=== PATIENT | female | born 1980 | race African-American/Black ===

== ENCOUNTER 2018-03-13 23:50 | Emergency (ER) | payer OTHER ==
[2018-03-14 00:35] VITALS: BP 122/87; PULSE 90; TEMP 98.4; BMI 88.0
--- NOTE | 2018-03-14 00:50 | PDOC ---
History of Present Illness - General Chief Complaint: Pain, Acute Stated Complaint: STOMACH PAIN Time Seen by Provider: 03/14/18 00:41 History Source: Patient - History of Present Illness Initial Comments: 03/14/18 02:56 37 year old female with epigastric pain radiating to left and right upper quadrant with burning sensation. patient reports that she vomited 1x since tuesday. pain intermittent in nature. denies chest pain SOB, fever chills, urinary symptoms Past History - Past Medical History Allergies/Adverse Reactions: Allergies Allergy/AdvReac Type Severity Reaction Status Date / Time No Known Allergies Allergy Verified 03/14/18 11:21 Home Medications: Ambulatory Orders Acetaminophen [Tylenol] 650 mg PO Q6H PRN 03/14/18 Famotidine [Pepcid -] 40 mg PO DAILY #7 tablet 03/14/18 Amlodipine Besylate [Norvasc -] 10 mg PO DAILY 03/21/18 Losartan/Hydrochlorothiazide [Losartan-Hctz 50-12.5 mg Tab] 1 tab PO DAILY 03/21 Mag Hydrox/Al Hydrox/Simeth [MAALOX *SUSPENSION* -] 30 ml PO Q6H 03/21/18 - Suicide/Smoking/Psychosocial Hx Smoking History: Never smoked Have you smoked in the past 12 months: No Information on smoking cessation initiated: No Hx Alcohol Use: No Drug/Substance Use Hx: No Review of Systems - Review of Systems Able to Perform ROS?: Yes Is the patient limited Bel[place]ian proficient: No Constitutional: No: Symptoms Reported, See HPI, Chills, Diaphoresis, Fever, Loss of Appetite, Malaise, Night Sweats, Weakness, Weight Stable, Unintentional Wgt. Loss, Unexplained wgt Loss, Other Respiratory: No: Symptoms reported, See HPI, Cough, Orthopnea, Shortness of Breath, SOB with Exertion, SOB at Rest, Stridor, Wheezing, Productive cough, Hemoptysis, Other Cardiac (ROS): No: Symptoms Reported, See HPI, Chest Pain, Edema, Irregular Heart Rate, Lightheadedness, Palpitations, Syncope, Chest Tightness, Other ABD/GI: Yes: Nausea, Abdominal cramping. No: Symptoms Reported, See HPI, Abdominal Distended, Abd. Pain w/ defecation, Blood Streaked Bowels, Constipated , Diarrhea, Difficulty Swallowing, Poor Appetite, Poor Fluid Intake, Rectal Bleeding, Vomiting, Indigestion, Tarry Stools, Other *Physical Exam - Vital Signs Last Vital Signs Temp Pulse Resp BP Pulse Ox 98.4 F 90 20 122/87 99 03/14/18 00:31 03/14/18 00:31 03/14/18 00:31 03/14/18 00:31 03/14/18 00:31 - Physical Exam General Appearance: Yes: Appropriately Dressed Respiratory/Chest: positive: Lungs Clear, Normal Breath Sounds Gastrointestinal/Abdominal: positive: Normal Bowel Sounds, Tender (epigatsric tenderness), Soft Musculoskeletal: positive: Normal Inspection Extremity: positive: Normal Capillary Refill, Normal Inspection, Normal Range of Motion Integumentary: positive: Normal Color, Dry, Warm Neurologic: positive: Fully Oriented, Alert, Normal Mood/Affect Medical Decision Making - Medical Decision Making Gastritis P: pepcid; maalox 03/14/18 03:09 patient reports feeling better. will d/c home with maalox and pepcid. strict return precautions reviewed with patient. patient verbalized understanding. 03/31/18 05:57 *DC/Admit/Observation/Transfer Diagnosis at time of Disposition: Gastritis Qualifiers: Gastritis type: unspecified gastritis Chronicity: unspecified Gastritis bleeding: without bleeding Qualified Code(s): K29.70 - Gastritis, unspecified, without bleeding - Discharge Dispostion Disposition: HOME - Prescriptions Prescriptions: Famotidine [Pepcid -] 40 mg PO DAILY #7 tablet - Referrals Referrals: Isaac Vargas [Primary Care Provider] - Jones Osorio DO [Staff Physician] - Call tomorrow - Patient Instructions Printed Discharge Instructions: Gastritis, [place] Diet Additional Instructions: start a bland diet take pepcid and maalox as prescribed. follow up with a Gasteroenterology as soon as possible. return to the ER if symptoms worsen - Post Discharge Activity Forms/Work/School Notes: Back to Work
[2018-03-14 01:20] LABS: URINE APPEARANCE SLCLOUDY; URINE BILIRUBIN NEGATIVE (<2.0 mg/dL); URINE COLOR YELLOW; URINE GLUCOSE (UA) NEGATIVE (NEGATIVE); URINE KETONE NEGATIVE (NEGATIVE); URINE LEUK ESTERASE NEGATIVE (NEGATIVE); URINE NITRITE NEGATIVE (NEGATIVE); URINE PROTEIN NEGATIVE (NEGATIVE)
[2018-03-14 01:21] LABS: HCG,QUALITATIVE URINE NEGATIVE
[2018-03-14] MEDS ORDERED: MAG HYDROX/AL HYDROX/SIMETH 30 ML UNIT-DOSE CUP PO ONE (02:30)
[2018-03-14] MEDS ORDERED: DICYCLOMINE HCL 10 MG CAPSULE PO ONE (02:30)
[2018-03-14] MEDS ORDERED: ONDANSETRON *ODT* 4 MG TABLET SL ONE (02:32)
[2018-03-14] MEDS ORDERED: SUCRALFATE 1 GM TABLET (FP) ONE (02:39)
[2018-03-14] MEDS ORDERED: ONDANSETRON *ODT* 4 MG TABLET ONE (02:39)
[2018-03-14] MEDS ORDERED: DICYCLOMINE HCL 10 MG CAPSULE ONE (02:39)
[2018-03-14] MEDS ORDERED: MAG HYDROX/AL HYDROX/SIMETH 30 ML UNIT-DOSE CUP ONE (02:39)
[2018-03-14] MEDS ORDERED: SUCRALFATE 1 GM TABLET (FP) PO ONE (02:45)
== END 2018-03-14 03:21 | disposition home or self-care (01) ==
LOC: JER 23:50
DX: K29.70 Gastritis, unspecified, without bleeding (principal)
CPT/HCPCS: 76705-TC; 81003; 84703; 99282-25; Q0162

== ENCOUNTER 2018-03-14 11:09 | Emergency (ER) | payer OTHER ==
[2018-03-14 11:24] VITALS: BP 129/81; PULSE 88; TEMP 98.2; BMI 39.9
[2018-03-14] MEDS ORDERED: ONDANSETRON 4 MG/2 ML VIAL IVPB ONE (11:57)
[2018-03-14] MEDS ORDERED: morphine CARPU-JECT 4 MG/1 ML DISP.SYRIN IVPUSH ONE (11:57)
[2018-03-14] MEDS ORDERED: SODIUM CHLORIDE 1,000 ML IV STA (11:57)
--- NOTE | 2018-03-14 12:07 | PDOC ---
History of Present Illness - General History Source: Patient Exam Limitations: No Limitations <Boogie Villagomez - Last Filed: 03/14/18 15:29> - General History Source: Patient Exam Limitations: No Limitations - History of Present Illness Initial Comments: 03/14/18 12:12 The patient is a 37 year old female with significant PMH of obesity and hypertension who presents to the emergency department for reevaluation of persistent upper abdominal pain with associated nausea that began approximately 4 days ago. The patient describes the upper abdominal pain as intermittent, sharp and burning in sensation. The patient endorses nausea/ vomit after eating/ drinking. The patient has been taking Tylenol with minimal relief. The patient reports she had a similar pain in the past and was told she had fibroids and a cyst. The patient was told to follow up with a GI doctor. The patient cannot recall when she last had an endoscopy. The patient was seen earlier today at our facility and had a urine analysis and ultrasound done, both of which were negative. The patient was told she likely had gastritis and was discharged home. The patient states the upper abdominal pain is persistent despite Tylenol and Protonix prompting her to come to the ER for a second evaluation. The patient denies chest pain, shortness of breath, headache and dizziness. Denies fever, chills, diarrhea and constipation. Denies dysuria, frequency, urgency and hematuria. Allergies: NKA Past surgical history: None reported. Social history: No reported alcohol, drug, or cigarette use. PCP: Dr. Vargas <Almita Vargas - Last Filed: 03/14/18 18:17> - General Chief Complaint: Pain Stated Complaint: REVISIT, PAIN Time Seen by Provider: 03/14/18 11:49 Past History - Past Medical History COPD: No DVT: No HTN: Yes - Surgical History Abdominal Surgery: Yes (ECTOPIC, TUBAL LIGATION) - Suicide/Smoking/Psychosocial Hx Smoking History: Never smoked Have you smoked in the past 12 months: No Information on smoking cessation initiated: Yes Hx Alcohol Use: No Drug/Substance Use Hx: No Substance Use Type: None <Boogie Villagomez - Last Filed: 03/14/18 15:29> <Almita Vargas - Last Filed: 03/14/18 18:17> - Past Medical History Allergies/Adverse Reactions: Allergies Allergy/AdvReac Type Severity Reaction Status Date / Time No Known Allergies Allergy Verified 03/14/18 11:21 Home Medications: Ambulatory Orders Acetaminophen [Tylenol] 650 mg PO Q6H PRN 03/14/18 Famotidine [Pepcid -] 40 mg PO DAILY #7 tablet 03/14/18 Mag Hydrox/Al Hydrox/Simeth [Mylanta Suspension -] 30 ml PO Q6H PRN #1 bottle Review of Systems - Review of Systems Able to Perform ROS?: Yes Comments:: 03/14/18 12:19 GENERAL/CONSTITUTIONAL: No fever or chills. No weakness. HEAD, EYES, EARS, NOSE AND THROAT: No change in vision. No ear pain or discharge. No sore throat. CARDIOVASCULAR: No chest pain or shortness of breath. RESPIRATORY: No cough, wheezing, or hemoptysis. GASTROINTESTINAL: (+) Upper abdominal pain. (+) Nausea. (+) Vomiting. No diarrhea or constipation. GENITOURINARY: No dysuria, frequency, or change in urination. MUSCULOSKELETAL: No joint or muscle swelling or pain. No neck or back pain. SKIN: No rash NEUROLOGIC: No headache, vertigo, loss of consciousness, or change in strength/ sensation. ENDOCRINE: No increased thirst. No abnormal weight change. HEMATOLOGIC/LYMPHATIC: No anemia, easy bleeding, or history of blood clots. ALLERGIC/IMMUNOLOGIC: No hives or skin allergy. <Almita Vargas - Last Filed: 03/14/18 18:17> *Physical Exam - Vital Signs Last Vital Signs Temp Pulse Resp BP Pulse Ox 98.2 F 88 18 129/81 100 03/14/18 11:22 03/14/18 11:22 03/14/18 11:22 03/14/18 11:22 03/14/18 11:22 <Boogie Villagomez - Last Filed: 03/14/18 15:29> - Vital Signs Last Vital Signs Temp Pulse Resp BP Pulse Ox 98.2 F 88 18 129/81 100 03/14/18 11:22 03/14/18 11:22 03/14/18 11:22 03/14/18 11:22 03/14/18 11:22 - Physical Exam Comments: 03/14/18 12:20 GENERAL: (+) Obese. Awake, alert, and fully oriented, in no acute distress HEAD: No signs of trauma EYES: PERRLA, EOMI, sclera anicteric, conjunctiva clear ENT: Auricles normal inspection, hearing grossly normal, nares patent, oropharynx clear without exudates. Moist mucosa NECK: Normal ROM, supple, no lymphadenopathy, JVD, or masses LUNGS: Breath sounds equal, clear to auscultation bilaterally. No wheezes, and no crackles HEART: Regular rate and rhythm, normal S1 and S2, no murmurs, rubs or gallops ABDOMEN: (+) Right upper quadrant is tender to palpation. Soft, normoactive bowel sounds. No guarding, no rebound. No masses EXTREMITIES: Normal range of motion, no edema. No clubbing or cyanosis. No cords, erythema, or tenderness NEUROLOGICAL: Cranial nerves II through XII grossly intact. Normal speech. SKIN: Warm, Dry, normal turgor, no rashes or lesions noted. <Almita Vargas - Last Filed: 03/14/18 18:17> ED Treatment Course - LABORATORY CBC & Chemistry Diagram: 03/14/18 12:21 03/14/18 11:56 - RADIOLOGY Radiology Studies Ordered: Category Date Time Status ABDOMEN & PELVIS CT WITH CONTR [CT] Stat CT Scan 03/14/18 11:56 Ordered <Boogie Villagomez - Last Filed: 03/14/18 15:29> - LABORATORY CBC & Chemistry Diagram: 03/14/18 12:21 03/14/18 11:56 <Almita Vargas - Last Filed: 03/14/18 18:17> Medical Decision Making - Medical Decision Making 03/14/18 12:03 A portion of this note was documented by scribe services under my direction. I have reviewed the details of the note, within reason, and agree with the documentation with the following case summary and management plan written by me. Patient treated in the ED. Nursing notes are reviewed and incorporated into the medical decision-making. Vital signs reviewed. Peripheral IV access obtained by the nurse, laboratory studies are drawn and sent, reviewed and interpreted by myself. Vital Signs Temp Pulse Resp BP Pulse Ox 98.2 F 88 18 129/81 100 03/14/18 11:22 03/14/18 11:22 03/14/18 11:22 03/14/18 11:22 05/08/18 11:22 37-year-old female patient with past medical history obesity, hypertension presents with persistent pain. The patient reports for approximate 4 days of having his upper abdominal pain with nausea. She states she's been having poor appetite and every time she eats or drinks she vomits. Denies fevers or chills, dysuria, hematuria. She was seen in the ER this morning where she had an ultrasound and a urinalysis performed. Given negative urine test and ultrasound and discharged with instructions that this may be likely gastritis. However, patient can have persistent pain despite taking Tylenol and Protonix. Came in for evaluation. Differential includes hepatitis, pancreatitis, peptic ulcer, gastritis. We'll obtain labs including a CAT scan the abdomen pelvis and reassess. 03/14/18 15:29 CBC, BMP 03/14/18 12:21 03/14/18 11:56 CMP Sodium 142 mmol/L (136-145) 03/14/18 11:56 Potassium 3.6 mmol/L (3.5-5.1) 03/14/18 11:56 Chloride 105 mmol/L (98-107) 03/14/18 11:56 Carbon Dioxide 32 mmol/L (21-32) 03/14/18 11:56 Anion Gap 5 (8-16) L 03/14/18 11:56 BUN 11 mg/dL (7-18) 03/14/18 11:56 Creatinine 0.8 mg/dL (0.55-1.02) 03/14/18 11:56 Creat Clearance w eGFR > 60 (>60) 03/14/18 11:56 Random Glucose 108 mg/dL (74-106) H 03/14/18 11:56 Calcium 8.6 mg/dL (8.5-10.1) 03/14/18 11:56 Total Bilirubin 0.4 mg/dL (0.2-1.0) D 03/14/18 11:56 AST 9 U/L (15-37) L 03/14/18 11:56 ALT 14 U/L (12-78) 03/14/18 11:56 Alkaline Phosphatase 97 U/L (45-117) 03/14/18 11:56 Total Protein 7.8 g/dl (6.4-8.2) 03/14/18 11:56 Albumin 3.7 g/dl (3.4-5.0) 03/14/18 11:56 Lipase 162 U/L (73-393) 03/14/18 11:56 CAT scan the abdomen pelvis demonstrate no acute findings. I suspect that the patient has gastritis or gastric ulcer. The patient already made an appointment with Dr. Don Cain in 2 days. She is aware that she'll likely need an endoscopy. Pt has zantac and protonix to take at home. I discussed the physical exam findings, ancillary test results and final diagnoses with the patient. I answered all of the patient's questions. The patient was satisfied with the care received and felt comfortable with the discharge plan and treatment plan. The patient will call their primary care physician within 24 hours to arrange follow-up and will return to the Emergency Department with any new, persistant or worsening symptoms. <Boogie Villagomez - Last Filed: 03/14/18 15:29> - Medical Decision Making 03/14/18 15:05 Imaging: Abdomen and Pelvis CT with contrast. Impression: Fibroid uterus otherwise essentially normal CT scan of the abdomen and pelvis with no evidence of acute pathology. Reported by: Dr. Clemens <Almita Vargas - Last Filed: 03/14/18 18:17> *DC/Admit/Observation/Transfer - Discharge Dispostion Decision to Admit order: No <Boogie Villagomez - Last Filed: 03/14/18 15:29> - Attestations Scribe Attestion: 03/14/18 12:21 Documentation prepared by Almita Vargas, acting as medical receptionist biller for Boogie Villagomez MD. <Almita Vargas - Last Filed: 03/14/18 18:17> Diagnosis at time of Disposition: Gastritis Qualifiers: Gastritis type: unspecified gastritis Chronicity: unspecified Gastritis bleeding: without bleeding Qualified Code(s): K29.70 - Gastritis, unspecified, without bleeding - Discharge Dispostion Disposition: HOME Condition at time of disposition: Improved - Referrals Referrals: Isaac Vargas [Primary Care Provider] - Jones Osorio DO [Staff Physician] - - Patient Instructions Printed Discharge Instructions: DI for Gastritis Additional Instructions: You will likely need an endoscopy. Continue taking your anti-acid reflux medications. Please follow up with Dr. Cain on . - Post Discharge Activity
[2018-03-14] MEDS ORDERED: ONDANSETRON 4 MG/2 ML VIAL ONE (12:09)
[2018-03-14] MEDS ORDERED: morphine SULFATE 4 MG/ML VIAL ONE (12:09)
[2018-03-14 12:38] LABS: BASO % 1.1 % (0-2.0); EOS % 2.7 % (0-4.5); HEMATOCRIT 35.5 % (32.4-45.2); LYMPH % 43.5 % (8-40); MCH 20.9 pg (25.7-33.7); MEAN CELL VOLUME 67.5 fl (80-96); MEAN PLT VOLUME 8.9 fl (7.5-11.1); MONO % 7.4 % (3.8-10.2); NEUT % 45.3 % (42.8-82.8); PLATELET COUNT 245 K/MM3 (134-434); RBC 5.25 M/mm3 (3.60-5.2); RDW 15.2 % (11.6-15.6); WHITE BLOOD COUNT 5.1 K/mm3 (4.0-10.0)
[2018-03-14 13:23] LABS: ALBUMIN 3.7 g/dl (3.4-5.0); ANION GAP 5 (8-16); CALCIUM 8.6 mg/dL (8.5-10.1); CHLORIDE 105 mmol/L (98-107); CO2 32 mmol/L (21-32); CREATININE 0.8 mg/dL (0.55-1.02); GLUCOSE,RANDOM 108 mg/dL (74-106); LIPASE 162 U/L (73-393); POTASSIUM 3.6 mmol/L (3.5-5.1); SGOT/AST 9 U/L (15-37); SGPT/ALT 14 U/L (12-78); SODIUM 142 mmol/L (136-145)
[2018-03-14 13:30] LABS: ALK PHOS 97 U/L (45-117); BILIRUBIN,TOTAL 0.4 mg/dL (0.2-1.0); BLOOD UREA NITROGEN 11 mg/dL (7-18); TOT PROT 7.8 g/dl (6.4-8.2)
== END 2018-03-14 15:38 | disposition home or self-care (01) ==
LOC: JER 11:09
PROC: 3E033NZ Introduction of Analgesics, Hypnotics, Sedatives into Peripheral Vein, Percutaneous Approach (ICD-10-PCS; principal; 2018-03-14)
PROC: 3E033GC Introduction of Other Therapeutic Substance into Peripheral Vein, Percutaneous Approach (ICD-10-PCS; 2018-03-14)
DX: K29.70 Gastritis, unspecified, without bleeding (principal); I10 Essential (primary) hypertension; E66.9 Obesity, unspecified; Z68.39 Body mass index [BMI] 39.0-39.9, adult
CPT/HCPCS: 36415; 74177-TC; 80053; 83690; 85025; 96374; 96375; 99282-25; J7030

== ENCOUNTER 2018-03-21 10:25 | Day surgery (SDC) | payer OTHER ==
[2018-03-21 11:29] VITALS: BMI 40.1
[2018-03-21] MEDS ORDERED: PROPOFOL 20 ML ONE ×3 (12:08)
[2018-03-21 12:49] VITALS: TEMP 97.7
[2018-03-21 13:31] VITALS: BP 138/88; PULSE 64
--- NOTE | 2018-03-22 11:36 | PATH ---
Surgical Pathology Report Patient Name: ELEANOR STOREY [facility]. Rec. #: [id number] /Age/Gender: 1980 (Age: 37) / F Account: [id number] Location: U-ENDOSCOPY Taken: 03/21/2018 Received: 03/21/2018 Reported: 03/22/2018 Physicians: Travon Osorio D.O. Specimen(s) Received BX BODY/ANGULARIS Clinical History Abdominal pain Postoperative diagnosis: Hiatal hernia, dyspepsia Final Diagnosis GASTRIC ANGULARIS/BODY, BIOPSY: GASTRIC MUCOSA WITH CHRONIC GASTRITIS. IMMUNOSTAIN IS NEGATIVE FOR H. PYLORI ORGANISMS. Electronically Signed Sameer Mckinley M.D. Gross Description Received in formalin, labeled "biopsy angularis/body" are 4 owens, irregular portions of soft tissue ranging from 0.2-0.4 cm. in greatest dimension. The specimens are submitted in toto in one cassette. /03/21/2018 saudi/03/21/2018
== END 2018-03-21 13:20 | disposition home or self-care (01) ==
LOC: JASU-ENDO 10:25
PROVIDERS: ATTEND Internal Medicine Gastroenterology
PROC: 0DB68ZX Excision of Stomach, Via Natural or Artificial Opening Endoscopic, Diagnostic (ICD-10-PCS; principal; 2018-03-21 11:30)
DX: K44.9 Diaphragmatic hernia without obstruction or gangrene (principal); K29.50 Unspecified chronic gastritis without bleeding
CPT/HCPCS: 84703; 88305-TC; 88342-TC

== ENCOUNTER 2019-04-08 08:06 | Emergency (ER) | payer OTHER ==
[2019-04-08 08:19] VITALS: BP 124/88; PULSE 79; TEMP 98.5; BMI 32.8
--- NOTE | 2019-04-08 08:38 | PDOC ---
History of Present Illness - General Chief Complaint: Pain Stated Complaint: R WRIST PAIN Time Seen by Provider: 04/08/19 08:15 - History of Present Illness Initial Comments: 04/08/19 08:54 CHIEF COMPLAINT: wrist pain HISTORY OF PRESENT ILLNESS: 38 yo F with no significant PMH presents to ED with pain to R wrist x 2 years. Patient reports the pain was intermittent for some time and she "was supposed to get an x-ray but I never got it because the pain would come and go." Patient reports the pain started shooting up her arm this weekend, especially with flexion or extension of the wrist. She does admit to being on the computer all the time for work. Denies any trauma or injury. No recent travel or sick contacts. PAST MEDICAL HISTORY: Denies past medical history FAMILY HISTORY: Denies SOCIAL HISTORY: Denies tobacco, alcohol, illicit drug use. SURGICAL HISTORY: Denies ALLERGIES: No known drug allergies REVIEW OF SYSTEMS General/Constitutional: Denies fever or chills. Denies weakness, weight change. HEENT: Denies change in vision. Denies ear pain or discharge. Denies sore throat. Cardiovascular: Denies chest pain or shortness of breath. Respiratory: Denies cough, wheezing, or hemoptysis. Gastrointestinal: Denies nausea, vomiting, diarrhea or constipation. Denies rectal bleeding. Genitourinary: Denies dysuria, frequency, or change in urination. Musculoskeletal: Right wrist pain. Skin: Denies rash or easy bruising. Neurologic: Denies headache, vertigo, loss of consciousness, or loss of sensation. PHYSICAL EXAM General Appearance: Well-appearing, appropriately dressed. No apparent distress , no intoxication. HEENT: EOMI, PERRLA, normal ENT inspection, normal voice, TMs normal, pharynx normal. No conjunctival pallor. No photophobia, scleral icterus. Neck: Supple. Trachea midline. No tenderness, rigidity, carotid bruit, stridor , lymphadenopathy, or thyromegaly. Respiratory/Chest: Lungs CTAB. No shortness of breath, chest tenderness, respiratory distress, accessory muscle use. No crackles, rales, rhonchi, stridor , wheezing, dullness Cardiovascular: RRR. S1, S2. No JVD, murmur, bradycardia, tachycardia. Vascular Pulses: Dorsalis-Pedis (R): 2+, Dorsalis-Pedis (L): 2+ Gastrointestinal/Abdominal: Normal bowel sounds. Abdomen soft, non-distended. No tenderness or rebound tenderness. No organomegaly, pulsatile mass, guarding , hernia, hepatomegaly, splenomegaly. Lymphatic: No adenopathy, tenderness. Musculoskeletal/Extremities: Positive phalen's sign to R wrist. Normal inspection. FROM of all other extremities, normal capillary refill. Pelvis Stable. No CVA tenderness. No tenderness to extremities, pedal edema, swelling , erythema or deformity. Integumentary: Appropriate color, dry, warm. No cyanosis, erythema, jaundice or rash Neurologic: balloon tester II-XII intact. Fully oriented, alert. Appropriate mood/affect. Motor strength 5/5. No appreciable EOM palsy, facial droop or sensory deficit. Past History - Past Medical History Allergies/Adverse Reactions: Allergies Allergy/AdvReac Type Severity Reaction Status Date / Time No Known Allergies Allergy Verified 04/08/19 08:11 Home Medications: Ambulatory Orders Acetaminophen [Tylenol] 650 mg PO Q6H PRN 03/14/18 Famotidine [Pepcid -] 40 mg PO DAILY #7 tablet 03/14/18 Amlodipine Besylate [Norvasc -] 10 mg PO DAILY 03/21/18 Losartan/Hydrochlorothiazide [Losartan-Hctz 50-12.5 mg Tab] 1 tab PO DAILY 03/21 Mag Hydrox/Al Hydrox/Simeth [MAALOX *SUSPENSION* -] 30 ml PO Q6H 03/21/18 Diclofenac Sodium 75 mg PO BID #20 tablet. 04/08/19 Asthma: Yes COPD: No DVT: No HTN: Yes - Surgical History Abdominal Surgery: Yes (ECTOPIC, TUBAL LIGATION) - Suicide/Smoking/Psychosocial Hx Smoking History: Current every day smoker Have you smoked in the past 12 months: No Number of Cigarettes Smoked Daily: 10 Information on smoking cessation initiated: No Hx Alcohol Use: No Drug/Substance Use Hx: No Substance Use Type: None *Physical Exam - Vital Signs Last Vital Signs Temp Pulse Resp BP Pulse Ox 98.5 F 79 18 124/88 100 04/08/19 08:08 04/08/19 08:08 04/08/19 08:08 04/08/19 08:08 04/08/19 08:08 Medical Decision Making - Medical Decision Making 04/08/19 10:46 38 yo F with no significant PMH presents to ED with pain to R wrist x 2 years. clinical presentation consistent with carpal tunnel syndrome splint applied, NSAIDS, wrist ortho referral given. Advised patient to take medication as prescribed and follow up with ortho within the next 2 weeks. Advised patient of signs and symptoms for return to ED. Patient verbalized understanding and agrees to plan. *DC/Admit/Observation/Transfer Diagnosis at time of Disposition: Carpal tunnel syndrome Qualifiers: Laterality: right Qualified Code(s): G56.01 - Carpal tunnel syndrome, right upper limb - Discharge Dispostion Disposition: HOME Condition at time of disposition: Stable Decision to Admit order: No - Prescriptions Prescriptions: Diclofenac Sodium 75 mg PO BID #20 tablet.dr - Referrals Referrals: Ahsan Tate MD [Primary Care Provider] - Rajeev Hercules MD [Staff Physician] - - Patient Instructions Printed Discharge Instructions: DI for Carpal Tunnel Syndrome Additional Instructions: Please wear wrist splint daily except when bathing or doing other necessary activities of daily living. Follow up with orthopedic wrist specialist as discussed. If you develop new or worsening symptoms, please return to the ER. - Post Discharge Activity Forms/Work/School Notes: Back to Work
[2019-04-08] MEDS ORDERED: KETOROLAC TROMETHAMINE 30 MG/1 ML VIAL IM ONE (08:39)
[2019-04-08] MEDS ORDERED: KETOROLAC TROMETHAMINE 30 MG/1 ML VIAL ONE (08:44)
== END 2019-04-08 09:26 | disposition home or self-care (01) ==
LOC: JERFT 08:06
PROC: 3E0233Z Introduction of Anti-inflammatory into Muscle, Percutaneous Approach (ICD-10-PCS; principal; 2019-04-08)
DX: G56.01 Carpal tunnel syndrome, right upper limb (principal)
CPT/HCPCS: 73110-TC-RT-FY; 96372; 99281-25

== ENCOUNTER 2019-10-14 15:16 | Emergency (ER) | payer OTHER ==
[2019-10-14 15:20] VITALS: BP 129/85; PULSE 84; TEMP 98.3; BMI 32.8
--- NOTE | 2019-10-14 15:51 | PDOC ---
History of Present Illness - General Chief Complaint: Respiratory Stated Complaint: SOB Time Seen by Provider: 10/14/19 15:22 History Source: Patient Exam Limitations: No Limitations - History of Present Illness Initial Comments: 10/14/19 15:40 HISTORY OF PRESENT ILLNESS: 39-year-old woman past medical history of asthma (1- 2 annual visits, no history of intubation) presents to the emergency department for evaluation of sneezing, moist cough, audibly wheezing for the past 4 days. She reports increasing shortness of breath over the 4 days. She denies any fevers, chills, chest pain, back pain. Patient is a pack-a-day smoker for many years but has abstained from cigarettes over the past 4 days due to shortness of breath. No recent travel or sick contacts. PAST MEDICAL HISTORY: Asthma SURGICAL HISTORY: Denies ALLERGIES: No known drug allergies REVIEW OF SYSTEMS General/Constitutional: Denies fever or chills. Denies weakness, weight change. HEENT: Denies change in vision. Denies ear pain or discharge. Denies sore throat. Cardiovascular: Denies chest pain or shortness of breath. Respiratory: See HPI Gastrointestinal: Denies nausea, vomiting, diarrhea or constipation. Denies rectal bleeding. Genitourinary: Denies dysuria, frequency, or change in urination. Musculoskeletal: Denies joint or muscle swelling or pain. Denies neck or back pain. Skin and breasts: Denies rash or easy bruising. Neurologic: Denies headache, vertigo, loss of consciousness, or loss of sensation. Psychiatric: Denies depression or anxiety. Endocrine: Denies increased thirst. Denies abnormal weight change. Hematologic/Lymphatic: Denies anemia, easy bleeding, or history of blood clots. Allergic/Immunologic: Denies hives or skin allergy. Denies latex allergy. PHYSICAL EXAM General Appearance: Well-appearing, appropriately dressed. No apparent distress , no intoxication. HEENT: EOMI, PERRLA, normal ENT inspection, normal voice, TMs normal, pharynx normal. No conjunctival pallor. No photophobia, scleral icterus. Neck: Supple. Trachea midline. No tenderness, rigidity, carotid bruit, stridor , lymphadenopathy, or thyromegaly. Respiratory/Chest: Lungs CTAB. No shortness of breath, chest tenderness, respiratory distress, accessory muscle use. No crackles, rales, rhonchi, stridor , wheezing, dullness. Audible wheezing noted. Cardiovascular: RRR. S1, S2. No JVD, murmur, bradycardia, tachycardia. Integumentary: Appropriate color, dry, warm. No cyanosis, erythema, jaundice or rash Past History - Past Medical History Allergies/Adverse Reactions: Allergies Allergy/AdvReac Type Severity Reaction Status Date / Time No Known Allergies Allergy Verified 10/14/19 15:20 Home Medications: Ambulatory Orders Amlodipine Besylate [Norvasc -] 10 mg PO DAILY 03/21/18 Losartan/Hydrochlorothiazide [Losartan-Hctz 50-12.5 mg Tab] 1 tab PO DAILY 03/21 Albuterol Sulfate [Proair Hfa] 8.5 gm IH PRN PRN #1 [email or web address] 10/14/19 Azithromycin [Zithromax 250mg Tablets -] 250 mg PO UTDICT #6 tab 10/14/19 Anemia: Yes Asthma: Yes COPD: No DVT: No HTN: Yes - Surgical History Abdominal Surgery: Yes (ECTOPIC, TUBAL LIGATION) - Psycho Social/Smoking Cessation Hx Smoking History: Current every day smoker Have you smoked in the past 12 months: No Number of Cigarettes Smoked Daily: 10 Information on smoking cessation initiated: No Hx Alcohol Use: No Drug/Substance Use Hx: No Substance Use Type: None *Physical Exam - Vital Signs Last Vital Signs Temp Pulse Resp BP Pulse Ox 98.3 F 84 18 129/85 99 10/14/19 15:18 10/14/19 15:18 10/14/19 15:18 10/14/19 15:18 10/14/19 15:18 Medical Decision Making - Medical Decision Making 10/14/19 15:51 A/P: 39-year-old woman with shortness of breath progressing over 4 days Lungs clear to auscultation bilaterally Speaking in full sentences Audibly wheezing DuoNeb x4 Reassess 10/14/19 16:48 Patient reports improvement in her perceived respiratory status. Lungs remain clear to auscultation bilaterally. No longer audibly wheezing. Smoking cessation counseling attempted but patient refused. Discharge home with prescription for azithromycin for acute bronchitis given patient's asthma history. I discussed the physical exam findings, ancillary test results and final diagnoses with the patient. I answered all of the patient's questions. The patient was satisfied with the care received and felt comfortable with the discharge plan and treatment plan. The patient will call their primary care physician within 24 hours to arrange follow-up and will return to the Emergency Department with any new, persistent or worsening symptoms. 10/14/19 16:50 10/14/19 16:50 10/14/19 16:53 Discharge - Discharge Information Problems reviewed: Yes Clinical Impression/Diagnosis: Bronchitis, Declined smoking cessation Condition: Stable Disposition: HOME - Admission No - Additional Discharge Information Prescriptions: Albuterol Sulfate [Proair Hfa] 8.5 gm IH PRN PRN #1 [email or web address] PRN Reason: Wheezing Azithromycin [Zithromax 250mg Tablets -] 250 mg PO UTDICT #6 tab - Follow up/Referral - Patient Discharge Instructions Additional Instructions: Rest, drink lots of fluids: Teas, water, soups, Pedialyte Saltwater gargles Steamy showers/seem to face break up mucus Avoid contact with others until fevers and cough resolved Lots of handwashing and good hygiene Continue [id number] medications for symptomatic relief Tylenol or Motrin for fever and pain Azithromycin as directed Followup with private physician in one to 2 days as needed Return to emergency department for worsened symptoms, fevers, dehydration - Post Discharge Activity
[2019-10-14] MEDS ORDERED: ALBUTEROL SO4 2.5/IPRATROPIUM 0.5 INH SOL 3 ML VIAL.NEB. NEB ONE (15:52)
[2019-10-14] MEDS: ALBUTEROL SO4 2.5/IPRATROPIUM 0.5 INH SOL 3 ML VIAL.NEB. NEB SCH ×4 (15:54→16:31)
== END 2019-10-14 16:56 | disposition home or self-care (01) ==
LOC: JERFT 15:16
PROC: 3E0F7GC Introduction of Other Therapeutic Substance into Respiratory Tract, Via Natural or Artificial Opening (ICD-10-PCS; principal; 2019-10-14)
DX: J40 Bronchitis, not specified as acute or chronic (principal); F17.210 Nicotine dependence, cigarettes, uncomplicated; I10 Essential (primary) hypertension; Z86.718 Personal history of other venous thrombosis and embolism
CPT/HCPCS: 99282-25

== ENCOUNTER 2021-08-10 08:22 | Emergency (ER) | payer OTHER ==
[2021-08-10 08:30] VITALS: BP 144/88; PULSE 85; TEMP 97.6; BMI 36.0
[2021-08-10] MEDS ORDERED: KETOROLAC TROMETHAMINE 30 MG/1 ML VIAL IM ONE (10:33)
[2021-08-10] MEDS ORDERED: KETOROLAC TROMETHAMINE 30 MG/1 ML VIAL ONE (10:44)
== END 2021-08-10 12:58 | disposition home or self-care (01) ==
LOC: JERFT 08:22
PROC: 3E0233Z Introduction of Anti-inflammatory into Muscle, Percutaneous Approach (ICD-10-PCS; principal; 2021-08-10)
DX: M25.561 Pain in right knee (principal)
CPT/HCPCS: 73562-TC-RT-FY; 99284-25

== ENCOUNTER 2022-01-27 11:33 | Emergency (ER) | payer OTHER ==
[2022-01-27 11:42] VITALS: BP 148/87; PULSE 78; TEMP 98; BMI 34.4
[2022-01-27] MEDS ORDERED: ACETAMINOPHEN 1000 MG/100 ML BAG IVPB ONE (12:07)
[2022-01-27] MEDS ORDERED: SODIUM CHLORIDE 0.9% 500 ML INFUS.BAG IV ONE (12:07)
[2022-01-27] MEDS ORDERED: KETOROLAC TROMETHAMINE 30 MG/1 ML VIAL IVPUSH ONE (12:07)
[2022-01-27] MEDS ORDERED: ACETAMINOPHEN/CAFFEINE/BUTALBITAL 1 TAB PO ONE (12:07)
[2022-01-27] MEDS ORDERED: METOCLOPRAMIDE HCL INJECTION 10 MG/2 ML VIAL IVPUSH ONE (12:07)
[2022-01-27] MEDS ORDERED: KETOROLAC TROMETHAMINE 30 MG/1 ML VIAL ONE (12:22)
[2022-01-27] MEDS ORDERED: METOCLOPRAMIDE HCL INJECTION 10 MG/2 ML VIAL ONE (12:22)
[2022-01-27] MEDS ORDERED: ACETAMINOPHEN INJECTION 100 ML IVPB ONE (12:22)
[2022-01-27] MEDS ORDERED: ACETAMINOPHEN/CAFFEINE/BUTALBITAL 1 TAB ONE (12:58)
[2022-01-27] MEDS ORDERED: SUMATRIPTAN SUCCINATE 6 MG/0.5 ML VIAL SQ ONE (14:36)
[2022-01-27] MEDS ORDERED: SUMATRIPTAN SUCCINATE 6 MG/0.5 ML VIAL ONE (14:56)
[2022-01-27] MEDS ORDERED: VALPROATE SODIUM 500 MG/5 ML VIAL IVPB ONE (15:18)
[2022-01-27] MEDS ORDERED: VALPROATE SODIUM 500 MG/5 ML VIAL ONE (15:45)
== END 2022-01-27 16:53 | disposition home or self-care (01) ==
LOC: JER 11:33
PROC: 3E023GC Introduction of Other Therapeutic Substance into Muscle, Percutaneous Approach (ICD-10-PCS; principal; 2022-01-27)
PROC: 3E033GC Introduction of Other Therapeutic Substance into Peripheral Vein, Percutaneous Approach (ICD-10-PCS; principal; 2022-01-27)
DX: G43.909 Migraine, unspecified, not intractable, without status migrainosus (principal)
CPT/HCPCS: 70450-TC; 99285-25

== ENCOUNTER 2023-10-24 17:01 | Emergency (ER) | payer OTHER ==
[2023-10-24 17:32] VITALS: RESP 17; BMI 37.5
[2023-10-24 19:23] LABS: BASO % 0.5 % (0-2.0); EOS % 1.3 % (0-4.5); HEMATOCRIT 37.4 % (32.4-45.2); HEMOGLOBIN 11.5 GM/dL (10.7-15.3); LYMPH % 53.5 % (8-40); MCH 21.3 pg (25.7-33.7); MCHC 30.9 g/dl (32.0-36.0); MEAN CELL VOLUME 69.1 fl (80-96); MEAN PLT VOLUME 8.5 fl (7.5-11.1); MONO % 8.4 % (3.8-10.2); NEUT % 36.3 % (42.8-82.8); PLATELET COUNT 237 10^3/uL (134-434); RBC 5.42 M/mm3 (3.60-5.2); RDW 13.8 % (11.6-15.6); WHITE BLOOD COUNT 3.6 K/mm3 (4.0-10.0)
[2023-10-24 19:32] LABS: POTASSIUM 3.1 mmol/L (3.5-5.1)
[2023-10-24 19:35] LABS: ALBUMIN 3.4 g/dl (3.4-5.0); BLOOD UREA NITROGEN 17.6 mg/dL (7-18)
[2023-10-24 19:39] LABS: BILIRUBIN,TOTAL 0.1 mg/dL (0.2-1)
[2023-10-24 19:40] LABS: TOT PROT 7.6 g/dl (6.4-8.2)
[2023-10-24 20:01] LABS: ANISOCYTOSIS 3+; MACROCYTOSIS 0
[2023-10-24 20:46] VITALS: BP 131/86; PULSE 82; TEMP 97.9
[2023-10-24 20:54] LABS: ERYTHROCYTE SEDIMENTATION RATE 32 mm/hr (0-20)
[2023-10-24] MEDS ORDERED: ACETAMINOPHEN 500 MG TABLET (FP) PO ONE (22:17)
[2023-10-24] MEDS ORDERED: ACETAMINOPHEN 500 MG TABLET (FP) ONE (23:13)
[2023-10-24] MEDS ORDERED: SULFAMETHOXAZOLE/TRIMETHOPRIM 800MG/160MG D.S. TABLET ONE (23:17)
== END 2023-10-24 23:21 | disposition home or self-care (01) ==
LOC: JER 17:01
DX: M79.604 Pain in right leg (principal); M79.605 Pain in left leg; L03.115 Cellulitis of right lower limb; L03.116 Cellulitis of left lower limb
CPT/HCPCS: 36415; 80053; 85025; 85651; 86140; 87040; 93970-TC; 99284-25

== ENCOUNTER 2024-12-21 09:24 | Emergency (ER) | payer OTHER ==
[2024-12-21 09:41] VITALS: BP 150/80; PULSE 76; RESP 15; TEMP 97.3; BMI 34.4
== END 2024-12-21 10:20 | disposition home or self-care (01) ==
LOC: FER 09:24
DX: H53.8 Other visual disturbances (principal)
CPT/HCPCS: 99283-25